=== PATIENT | male | born 1995 | race Caucasian/White ===

== ENCOUNTER 2017-03-17 20:47 | Emergency (ER) | payer SELFPAY ==
[~2017-03-17] VITALS: Ht 185.4 cm; Wt 61.4 kg
[2017-03-17 20:49] VITALS: BP 109/56; TEMP 99.3
[2017-03-17] MEDS ORDERED: AMOXICILLIN 50500 MG PO (22:27)
[2017-03-17 22:36] VITALS: PULSE 99
== END 2017-03-17 22:37 | disposition home or self-care (01) ==
LOC: COL.ER 20:47
DX: K08.89 Other specified disorders of teeth and supporting structures (principal); K03.81 Cracked tooth